=== PATIENT | female | born 1985 | race Caucasian/White ===

== ENCOUNTER 2017-04-27 15:51 | Inpatient (IN) | payer OTHER ==
[~2017-04-27] VITALS: Ht 165.1 cm; Wt 67.7 kg
[2017-04-27] MEDS ORDERED: PRENTAB26 PO (16:29)
[2017-04-27 16:31] VITALS: Ht 165.1 cm; Wt 67.7 kg
[2017-04-27] MEDS ORDERED: LACTATED RINGER'S 1000ML 1,000 ML IV PRN (18:50)
[2017-04-27 19:07] LABS: HEMOGLOBIN 12.4 g/dL (12.0-16.0); MEAN CELL VOLUME 93.8 fL (80-100); MEAN CORPUSCULAR HEMOGLOBIN 33.2 pg (25-34); MEAN CORPUSCULAR HGB CONC 35.4 g/dl (32-36); MEAN PLATELET VOLUME 10.6 fL (7.4-10.4); PLATELET COUNT 233 K/uL (130-400); RED CELL DISTRIBUTION WIDTH SD 44.5 fL (36.4-46.3); WHITE BLOOD COUNT 11.94 K/uL (4.8-10.8)
[2017-04-27] MEDS ORDERED: EpHEDrine SULFATE INJ 50 MG/ML AMP ONE (19:07)
[2017-04-27] MEDS ORDERED: BUPIVACAINE 0.25% 30 ML VIAL ONE (19:07)
[2017-04-27] MEDS ORDERED: FENTANYL CITRATE INJ 50 MCG/1 ML 2 ML VIAL ONE (19:08)
[2017-04-27] MEDS ORDERED: FENTANYL 2MCG/ML ROPIV 1.25MG/ML 100ML BAG EPI ONE (19:08)
[2017-04-27] MEDS ORDERED: NALOXONE HCL INJ 1 MG in SODIUM CHLORIDE 0.9% 1000ML 1,000 ML IV PRN (20:02)
[2017-04-27] MEDS ORDERED: LACTATED RINGER'S 1000ML 500 ML IV PRN (20:02)
[2017-04-27] MEDS: LACTATED RINGER'S 1000ML 1,000 ML IV SCH (20:12)
[2017-04-27] MEDS ORDERED: DiphenhydrAMINE HCL 50 MG/ML VIAL IV PRN (20:15)
[2017-04-27] MEDS ORDERED: NALBUPHINE HCL INJ 10 MG/ML AMP IV PRN (20:15)
[2017-04-27] MEDS ORDERED: NALOXONE HCL INJ 0.4 MG/1 ML VIAL/CARP IV PRN (20:15)
[2017-04-27] MEDS ORDERED: EpHEDrine SULFATE INJ 50 MG/ML AMP IV PRN (20:15)
[2017-04-27] MEDS ORDERED: PROMETHAZINE HCL INJ 6.25 MG in SODIUM CHLORIDE 0.9% 50ML 50 ML IV PRN (20:15)
[2017-04-27] MEDS ORDERED: ONDANSETRON INJ 2 MG/ML 2 ML VIAL IV PRN (20:15)
[2017-04-28] MEDS: FENTANYL 2MCG/ML ROPIV 1.25MG/ML 100ML BAG EPI PRN ×2 (03:08→07:02)
[2017-04-28] MEDS: LACTATED RINGER'S 1000ML 1,000 ML IV SCH (04:09)
[2017-04-28] MEDS ORDERED: OXYTOCIN 30 UNITS/500ML NSS IV ONE (09:30)
[2017-04-28] MEDS ORDERED: LACTATED RINGER'S 1000ML 1,000 ML IV SCH (09:59)
[2017-04-28] MEDS ORDERED: DIPHTHERIA/TETANUS/PERTUSSIS 0.5 ML SYR/VIAL IM. ONE (10:00)
[2017-04-28] MEDS ORDERED: LANOLIN OINT EXT PRN (10:00)
[2017-04-28] MEDS ORDERED: OXYCODONE/ACETAMINOPHEN 5-325 TAB PO PRN (10:00)
[2017-04-28] MEDS ORDERED: BENZOCAINE 20% AER SPR 82.5 GM CAN EXT PRN (10:00)
[2017-04-28] MEDS ORDERED: SUPERCREAM 0.870 % 15GM JAR EXT PRN (10:00)
[2017-04-28] MEDS ORDERED: OXYTOCIN 30 UNITS/500ML NSS IV PRN (10:00)
[2017-04-28] MEDS ORDERED: ACETAMINOPHEN 325 MG TAB PO PRN (10:00)
[2017-04-28] MEDS ORDERED: MEASLES, MUMPS & RUBELLA VIRUS VIAL SQ. ONE (10:00)
[2017-04-28] MEDS ORDERED: HYDROCORTISONE ACETATE 25 MG SUPP PR PRN (10:00)
--- NOTE | 2017-04-28 10:10 | Vaginal Delivery Summary ---
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 MEET with tight nuchal cord x1. Apgars 5/7/9 weight pending. Delayed cord clamping followed by cord blood and spontaneous delivery of placenta. Second degree tear repaired with 3/0 Vicryl suture. Final sponge, needle and instrument count are correct. EBL 300 ml. Mom and baby stable.
--- NOTE | 2017-04-28 10:40 | Anesthesia Procedure Note ---
Anesthesia Epidural Removal Nt Date & Time Apr 28, 2017 at 10:40 Vital Signs Pain Intensity: 2.0 Notes Mental Status: alert / awake / arousable, participated in evaluation Nausea / Vomiting: adequately controlled Pain: adequately controlled Airway Patency, RR, SpO2: stable & adequate BP & HR: stable & adequate Hydration State: stable & adequate Neuraxial Anesthesia: was administered, sensory block is resolving Anesthetic Complications: no major complications apparent, pt satisfied with anesthetic care Epidural: removed without complications, with tip intact
[2017-04-28 12:39] VITALS: BP 122/83; PULSE 97; TEMP 36.6; O2SAT 97
[2017-04-28] MEDS: IBUPROFEN 600 MG TAB PO PRN ×2 (14:37→20:05)
[2017-04-28 16:25] VITALS: BP 118/73; PULSE 88; TEMP 36.4; O2SAT 97
[2017-04-28 19:45] VITALS: BP 131/90; PULSE 71; TEMP 36.4
[2017-04-28] MEDS: DOCUSATE SODIUM 100 MG CAP PO SCH (20:05)
[2017-04-29 00:15] VITALS: BP 121/80; PULSE 77; TEMP 36.6
[2017-04-29] MEDS: IBUPROFEN 600 MG TAB PO PRN ×4 (00:34→18:01)
[2017-04-29 03:30] VITALS: BP 117/69; PULSE 100; TEMP 36.4
[2017-04-29 07:15] LABS: HEMATOCRIT 24.3 % (37-47); HEMOGLOBIN 8.6 g/dL (12.0-16.0)
[2017-04-29 08:00] VITALS: BP 118/77; PULSE 81; TEMP 36.7
[2017-04-29] MEDS ORDERED: FERROUS SULFATE 325 MG TAB PO SCH (08:00)
[2017-04-29] MEDS: FERROUS SULFATE 325 MG TAB PO SCH ×2 (08:45→20:38)
[2017-04-29] MEDS: PRENATAL VITAMIN TAB PO SCH (08:45)
[2017-04-29] MEDS: DOCUSATE SODIUM 100 MG CAP PO SCH ×2 (08:46→20:38)
--- NOTE | 2017-04-29 08:50 | OB/GYN Progress Note ---
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 Patient is seen and examined. She feels well, no complaints. Ambulating without dizziness Voiding without difficulty Tolerating regular diet with out N&V Bleeding is minimal No fever/ chills/ CP/ SOB/ N&V/ Leg pain Breast feeding without problems Date Time Temp Pulse Resp B/P (MAP) Pulse Ox O2 Delivery O2 Flow Rate FiO2 04/29/17 08:00 36.7 81 18 118/77 (91) Room Air 04/29/17 03:30 36.4 100 18 117/69 (85) Room Air 04/29/17 00:15 Room Air 04/29/17 00:15 36.6 77 18 121/80 (94) Room Air 04/28/17 19:45 36.4 71 18 131/90 (104) Room Air 04/28/17 16:25 36.4 88 16 118/73 (88) 97 Room Air 04/28/17 16:25 97 Room Air 04/28/17 12:39 36.6 97 20 122/83 (96) 97 Room Air 04/28/17 12:39 97 Room Air Last 24 Hours Test 04/29/17 06:07 Hemoglobin 8.6 g/dL Hematocrit 24.3 % PE: General: Alert, orientedx3, NAD Abd: soft, NT, fundus firm, below Umbilicus Perineum intact, Lochia rubra minimal Ext; NT, no edema AP: 31 yo s/p , ppd# 1 VSS Afebrile doing well Anemic, asymptomatic, start iron bid, repeat H&H at noon Continue routine care All questions were answered D/C home tomorrow
[2017-04-29 12:56] LABS: HEMATOCRIT 27.3 % (37-47); HEMOGLOBIN 9.6 g/dL (12.0-16.0)
[2017-04-29 15:30] VITALS: BP 120/81; PULSE 87; TEMP 36.5
[2017-04-29] MEDS ORDERED: BISACODYL 5 MG TABEC PO SCH (20:00)
[2017-04-30 00:10] VITALS: BP 124/81; PULSE 70; TEMP 36.7
[2017-04-30] MEDS: IBUPROFEN 600 MG TAB PO PRN (01:14)
[2017-04-30] MEDS ORDERED: BISACODYL 10 MG SUPP PR PRN (07:00)
[2017-04-30] MEDS ORDERED: MTR600X PO (07:19)
--- NOTE | 2017-04-30 07:20 | Discharge Instructions ---
Discharge Instructions Date of Service Apr 30, 2017. Admission Reason for Admission: Check Labor Discharge Discharge Diagnosis / Problem: Vaginal Delivery Discharge Goals Goal(s): Routine recovery after delivery Medications Continue Dispensed Medications: supercream, dermaplast, tucks, lansinoh Activity Recommendations Activity Limitations: per Instructions/Follow-up section . Instructions / Follow-Up Instructions / Follow-Up ACTIVITY RECOMMENDATIONS: * Gradual return to full activity over the next 2-3 weeks. * No lifting - nothing heavier than baby over the next 2-3 weeks. * Do not engage in vigorous exercise, sexual activity or sports until cleared by your physician. * Do not drive or operate any motorized equipment until cleared by your physician. * You may shower/bathe daily. BREAST CARE: If you are not breast feeding: * Wear a supportive bra 24 hours a day for one to two weeks. * Avoid stimulating your breasts and nipples as much as possible during the first few weeks after delivery. * When taking a shower, have the warm water hit your back, not breasts. * When your breasts feel full, apply ice packs. Usually three to four times a day helps ease the discomfort. * Take a mild pain medication (Tylenol/Motrin) when you are uncomfortable. If breast feeding: * Use breast milk to lubricate nipples. Lansinoh cream may be used for sore nipples. You do not need to remove cream prior to breast feeding. If using a different brand of cream, check the label for directions regarding removal of cream prior to nursing. * Wear a supportive bra. * If having problems with breasts or breast feeding, call a internal consultant or your health care provider. EPISIOTOMY CARE: After delivery, if you have an episiotomy (stitches), the following steps will ease discomfort and aid healing. * For the first 24 hours after delivery, place ice packs next to your episiotomy to help reduce swelling. * After the first 24 hour-period, sitz baths, either portable or in the tub, are suggested. A shower with a shower arm sprayed over the episiotomy may be comforting. * [place] care should be done after each voiding and bowel movement. Squirt warm water from a plastic bottle over the perineum (region of the body between the anus and urinary opening) and pat dry. * Use Dermoplast to ease discomfort. Shake container. [place] directly over the episiotomy. * Place a Tucks on a clean sanitary pad next to your episiotomy. OVER THE COUNTER MEDICATION: * For discomfort or pain, you may use Acetaminophen (Tylenol), Ibuprofen (Advil ), or Naproxen (Aleve) following the package directions. * For constipation you may use Colace following the package directions. SPECIAL CARE INSTRUCTIONS: When you are discharged from the hospital, it is important for you to follow the instructions listed below: * During the first week at home, you should be able to care for yourself and your baby. In addition, the usual light household activities are encouraged. * Limit your activities to the way you feel. Do not try to clean the house or move furniture. Be sensible. * If you actively engage in sports and have done so up until the time of your delivery, you may resume these activities as soon as you feel able. This may take up to one month or even longer. Use good judgment. * Continue to take your vitamins for at least six weeks after the of your baby. * Your diet need not be limited unless you were on a special diet before your delivery. Breast-feeding mothers need around 2500 calories per day and at least 64-80 ounces of fluid per day (8 to 10 glasses). * You should eat foods from the four major food groups. Crash diets or fad diets are to be avoided. Eating lean meats, fresh fruits and vegetables, low-fat dairy products, high fiber foods and a regular exercise program, will help you get back to your pre- weight without putting your health at risk. * Constipation is sometimes a problem after delivery. Take a mild laxative as needed. If breast feeding, Milk of Magnesia is acceptable to use. You may use a suppository or Fleets enema if no episiotomy. * A daily shower or tub bath is suggested. Be sure to thoroughly and gently dry the perineum. * A bloody vaginal discharge will usually continue until around four weeks post . A small amount of bleeding may continue for as long as six weeks. Vaginal discharge changes from the bright red bleeding after delivery to pink then brownish and finally yellowish-pink before becoming white and disappearing. * Bleeding may increase with activity. Your first period may come in 4-8 weeks. If you are breast feeding, your period may be delayed even longer. * [place] (sex) can begin whenever both you and your partner feel comfortable and do not have any form of genital infection. It is recommended that you wait until after your return appointment and discuss with your physician. If you have questions, please talk to your health care practitioner. A condom should be used to prevent infection and . * Foreplay, gentle intercourse and lubrication is very important the first several times to prevent pain. A water-based lubricant such as K-Y jelly or Astroglide may be used. * Tampons may be used six weeks after delivery. * Douching should be avoided for 6 weeks after delivery. * If you have RH negative blood and your baby is RH positive, you will receive RHOGAM by injection prior to discharge. The nurse will give you a card to keep with you that has the date and place that you received RHOGAM after delivery. * During your care, you had a Rubella screen done to check for the presence of rubella antibodies in your blood. If your test was negative, you will receive a Rubella vaccine prior to discharge. This vaccine may cause a fever, soreness at the injection site and flu-like symptoms. If these symptoms persist, notify your health care practitioner. is not advised for three months after a Rubella vaccine. There is a higher chance of having a baby with defects if conceived within three months of getting the vaccine. * If you were discharged 24 hours from delivery or before 48 hours: Visiting nurses will come to your home 48 hours after discharge to assess you and your baby. The visiting nurse will meet with you while you are in the hospital to arrange a time and get directions to your home. * Verbalizes understanding of car seat law as reviewed with patient nursing. * Car Seat hand-out given and reviewed with patient by nursing. * Shaken baby information reviewed with patient by nursing. Call you doctor if: * Heavy bleeding (saturating several pads an hour) or passing clots the size of your fist. * A fever >101 degrees F (38.3 degrees C) on two occasions four hours apart and/or chills. * Unusual pain in the pelvic or vaginal areas. * "Baby Blues" lasting longer than two weeks. If you have any questions or concerns, call your health care practitioner at . FOLLOW-UP VISIT: * Please call the office at to schedule a 6 week examination. It is important you keep this appointment. * It is important for you to make arrangements for either yearly or twice yearly check-ups thereafter. Current Hospital Diet Patient's current hospital diet: Regular OB Diet Discharge Diet Recommended Diet: Regular OB Diet Pending Studies Studies pending at discharge: no Medical Emergencies . Who to Call and When: Medical Emergencies: If at any time you feel your situation is an emergency, please call 911 immediately. . Non-Emergent Contact Non-Emergency issues call your: Primary Care Provider, Disability Liaison Officer . . "Provider Documentation" section prepared by Loy Jo. . VTE Core Measure Inpt VTE Proph given/why not?: Treatment not indicated
--- NOTE | 2017-04-30 07:22 | OB/GYN Progress Note ---
ORDER ENTRY ADMINISTRATOR Progress Note Date of Service Apr 30, 2017. Subjective conversation w/ patient Ambulation: ambulating normally Voiding: no voiding problems Passing Gas: Yes Diet Tolerance: Regular Diet Lochia: Moderate Feeding Type: Breast Feeding Pain: 3-4/10 Notes: Doing well, pain well controlled. Tolerating regular diet. Ambulating without difficulty. Lochia decreasing. Would like to go home today. Review of Systems Constitutional: No fever, No chills, No sweats, No weight loss, No weakness, No fatigue, No problem reported Respiratory: No cough, No sputum, No wheezing, No shortness of breath, No dyspnea on exertion, No dyspnea at rest, No hemoptysis, No problem reported Cardiac: No chest pain, No orthopnea, No PND, No edema, No claudication, No palpitations, No problem reported Abdomen: No pain, No nausea, No vomiting, No diarrhea, No constipation, No GI bleeding, No problem reported Female : No see HPI, No dysuria, No urinary frequency, No hematuria, No incontinence, No abnormal vaginal bleeding, No vaginal discharge, No problem reported Objective Vital Signs Date Time Temp Pulse Resp B/P (MAP) Pulse Ox O2 Delivery O2 Flow Rate FiO2 04/30/17 00:10 Room Air 04/30/17 00:10 36.7 70 18 124/81 (95) Room Air 04/29/17 15:30 36.5 87 20 120/81 (94) Room Air 04/29/17 15:30 Room Air 04/29/17 08:00 36.7 81 18 118/77 (91) Room Air 04/29/17 07:30 Room Air Laboratory Results Last 24 Hours Test 04/29/17 12:27 Hemoglobin 9.6 g/dL Hematocrit 27.3 % Assessment and Plan Post- Day Number: 2 Continue Routine Care: -D/C home today -F/U in 6 weeks.
[2017-04-30] MEDS: DOCUSATE SODIUM 100 MG CAP PO SCH (08:19)
[2017-04-30] MEDS: FERROUS SULFATE 325 MG TAB PO SCH (08:19)
[2017-04-30] MEDS: PRENATAL VITAMIN TAB PO SCH (08:20)
[2017-04-30 08:38] VITALS: BP 125/81; PULSE 75; TEMP 36.6; O2SAT 99
[2017-04-30 13:00] VITALS: BP_DIAS 81; PULSE 75; TEMP 36.6
== END 2017-04-30 14:14 | disposition home or self-care (01) | DRG 775 ==
LOC: C.LD 15:51 → C.OPB 15:51 → C.LD 18:51 → C.OPB 18:51 → C.OBG 04-28 12:34
PROVIDERS: ADMIT Obstetrics & Gynecology; ATTEND Obstetrics & Gynecology
PROC: 0KQM0ZZ Repair Perineum Muscle, Open Approach (ICD-10-PCS; principal; 2017-04-28)
PROC: 10E0XZZ Delivery of Products of Conception, External Approach (ICD-10-PCS; principal; 2017-04-28)
DX: O77.0 Labor and delivery complicated by meconium in amniotic fluid (principal); O70.1 Second degree perineal laceration during delivery; O69.1XX0 Labor and delivery complicated by cord around neck, with compression, not applicable or unspecified; O26.893 Other specified pregnancy related conditions, third trimester; N89.6 Tight hymenal ring; O90.81 Anemia of the puerperium; Z3A.40 40 weeks gestation of pregnancy; Z37.0 Single live birth

== ENCOUNTER 2019-12-08 15:12 | Inpatient (IN) ==
[2019-12-08] MEDS ORDERED: OXYTOCIN 30 UNITS/500 ML BAG IV PRN ×2 (17:20→17:55)
--- NOTE | 2019-12-08 17:29 | History & Physical Report ---
Date of Service December 08, 2019 Assessment & Plan (1) Spontaneous rupture of amniotic membranes: 34 yo at 38.1 wks with SROM, not in labor VSS Afebrile FHR reassuring GBS negative Plan to admit Discussed IOL with Oxytocin , decrease risk of intraa-amniotic infection She agreed with IOL All questions were answered History of Present Illness Primary Care Provider: NO PCP Patient is a 34 yo at 38.1 wks, she felt small LOF yesterday afternoon and then stopped and then felt more this morning around 10 am. Clear She was in office and had speculum exam and Nitrazine was + and recommended to come to L&D Her AmniSure was + here at L&D No VB +FM No fever/ chills/ N&V/ Abd pain No ctxs,but feels mild irregular tightening, not painful Her has been uncomplicated GBS negative Allergies Allergy/AdvReac Type Severity Reaction Status Date / Time No Known Allergies Allergy Unverified 04/27/17 16:30 Home Medications Home Medications Medication Instructions Recorded Confirmed Type Multivit/Min/Iron/Fol Ac/Pren 1 tab PO DAILY #0 tab 04/27/17 12/08/19 History ( Vitamin) loratadine [Claritin] 10 mg PO DAILY PRN 12/08/19 12/08/19 History Patient History Medical History Asthma Social History Smoking Status: Never smoker Second Hand Exposure: No; Hx Alcohol Use: No Hx Substance Use: No Preferred Language: Khmer Communication Ability: Effective 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 Required: No Beliefs That Will Affect Care: None marital status: Current Living Situation: Spouse Feels Safe at Home: Yes Safety Concerns: Feels Safe At This Time 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, 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 No h/o STD's Review of Systems All systems reviewed & are unremarkable except as noted in HPI & below Physical Exam Constitutional: WD/WN, vitals as above well developed and well nourished Comfortable, NAD Gastrointestinal (Abdomen): normal bowel sounds, soft, nontender, no hepatosplenomegaly (SOFT, NT, Gravid) Genitourinary: normal external appearance OB Exam Abdomen: + vertex Manual OB Exam: + cervical dilation 2 cm, + cervical effacement 30% and + station high OB Exam Monitor Tracing: + external uterine monitor used and + category I Results & Data ([facility]) Vital Signs (Past 12 Hours) Vital Signs Temp Pulse Resp BP 12/08/19 15:27 106 H 121/78 12/08/19 15:26 37 C 18
[2019-12-08 17:42] LABS: Hematocrit (blood only) 34.4 % (37-47); Hemoglobin 11.9 g/dL (12.0-16.0); Mean Corpuscular Hemoglobin 32.2 pg (25-34); Mean Corpuscular Volume 93.2 fL (80-100); Mean Platelet Volume 10.2 fL (7.4-10.4); Platelet Count 208 K/uL (130-400); RDW Coefficient of Variation 12.9 % (11.5-14.5); RDW Standard Deviation 43.6 fL (36.4-46.3); Red Blood Count 3.69 M/uL (4.2-5.4); White Blood Count 9.64 K/uL (4.8-10.8)
[2019-12-08 17:48] LABS: Mean Corpuscular Hgb Conc 34.6 g/dL (32-36)
[2019-12-08] MEDS: LACTATED RINGER'S 1,000 ML IV PRN ×2 (17:50→21:06)
[2019-12-08] MEDS ORDERED: ePHEDrine sulfate 50 MG/ML AMP ONE (20:40)
[2019-12-08] MEDS ORDERED: BUPIVACAINE 0.25% 30 ML VIAL ONE (20:40)
[2019-12-08] MEDS ORDERED: fentaNYL citrate 100 MCG/2 ML VIAL ONE (20:41)
[2019-12-08] MEDS ORDERED: fentaNYL 2MCG/ML ROPIV 1.25MG/ML 100 ML BAG EPI ONE (20:42)
--- NOTE | 2019-12-08 21:57 | Anesthesiology Consultation ---
Date of Service December 08, 2019 Assessment & Plan (1) Encounter for pre-operative examination: Chart Review Chart Review: Acceptable Risk for Labor Epidural Consults Requested none ASA ASA2 Proposed Anesthesia Anesthesia Type: Labor Epidural Risk / Benefits Reviewed With: PT / POA / Parent / Guardian, Accepts Plan and Informed Consent Obtained History Height/Weight Height: 5 ft 5 in Weight: 62.142 kg Allergies Allergy/AdvReac Type Severity Reaction Status Date / Time No Known Allergies Allergy Unverified 04/27/17 16:30 Medications Home Medications Medication Instructions Recorded Confirmed Last Taken Multivit/Min/Iron/Fol Ac/Pren 1 tab PO DAILY #0 tab 04/27/17 12/08/19 12/08/19 07:30 ( Vitamin) loratadine [Claritin] 10 mg PO DAILY PRN 12/08/19 12/08/19 1 Day Ago ~12/07/19 Active Medications Generic Name Dose Route Start Last Admin Trade Name Freq PRN Reason Stop Dose Admin Lactated Ringer's 1,000 mls @ 150 mls/hr 12/08/19 17:20 12/08/19 21:06 Lr IV 12/10/19 17:19 150 mls/hr .[id number] PRN Administration L&D Protocol Protocol Oxytocin 30 units in 500 mls @ 10 mls/hr 12/08/19 17:55 12/08/19 20:15 Pitocin IV 12/10/19 17:54 0.6 units/hr .Q24H PRN 10 mls/hr Labor Induction/Augmentation Titration Protocol 0.6 UNITS/HR Past Medical History Medical History Asthma Exercise / Class Metabolic Activity II 4-5 Yardwork/Stairs/Walk up hill Past Anesthesia History No Hx of Anesthesia Complications and No Family Hx of Anesthesia Complications History of PONV No Hx of PONV and No Hx of Motion Sickness Social History Smoking Status: Never smoker Hx Alcohol Use: No Hx Substance Use: No Physical Exam Vital Signs Last Vital Signs Temp 97.7 F 12/08/19 21:07 Pulse 83 12/08/19 21:52 Resp 18 12/08/19 21:07 BP 135/89 12/08/19 21:07 Pulse Ox 97 12/08/19 21:52 ENMT Mouth: no dentition abnormality Thyromental Distance: > or= 3.5 Finger Breadths Mallampati Class: II Neck normal visual inspection Respiratory normal respiratory effort Auscultation: lungs clear to auscultation bilaterally Cardiovascular Rate/Rhythm: regular rate and regular rhythm Testing Laboratory Results 12/08/19 17:33
[2019-12-08] MEDS ORDERED: NALOXONE HCL 0.4 MG/1 ML VIAL/CARP IV PRN (22:08)
[2019-12-08] MEDS ORDERED: ONDANSETRON INJ 2 MG/ML 2 ML VIAL IV PRN (22:08)
[2019-12-08] MEDS ORDERED: fentaNYL 2MCG/ML ROPIV 1.25MG/ML 100 ML BAG EPI PRN (22:08)
[2019-12-08] MEDS ORDERED: DiphenhydrAMINE HCL 50 MG/ML VIAL IV PRN (22:08)
[2019-12-08] MEDS ORDERED: ePHEDrine sulfate 50 MG/ML AMP IV PRN (22:08)
[2019-12-08] MEDS ORDERED: NALOXONE HCL 1 MG in SODIUM CHLORIDE 0.9% 1000ML 1,000 ML IV PRN (22:08)
--- NOTE | 2019-12-08 22:37 | Obstetrical Progress Note ---
Date of Service December 08, 2019 Assessment & Plan Admission and Anticipated Discharge Date Admission Date: December 08, 2019 Subjective Patient is reevaluated. She has just received epidural for pain and getting more comfortable. heart rate at 120s to 30s with moderate variability, she had decelerations with each contraction for the last 3 contractions which were every 1 to 2 minutes. Vaginal exam, cervix is 5 cm dilated 70% effaced -3, soft and stretchable, abundant clear fluid leakage was noted. Patient is on her left lateral side, Pitocin was stopped, IV fluid bolus was started and nasal oxygen was applied. heart rate at 130s with good variability, we will continue to monitor closely. Results & Data ([facility]) Vital Signs (Past 12 Hours) Vital Signs Temp Pulse Resp BP Pulse Ox 12/08/19 22:32 81 100 12/08/19 22:31 100 H 91 12/08/19 22:27 78 97 12/08/19 22:26 86 91 12/08/19 22:23 95 H 113/72 12/08/19 22:22 94 H 97 12/08/19 22:21 85 94 12/08/19 22:18 82 18 111/73 12/08/19 22:17 90 97 12/08/19 22:16 84 120/86 92 12/08/19 22:15 18 12/08/19 22:14 83 114/79 12/08/19 22:12 96 H 112/75 94 12/08/19 22:10 82 124/80 94 12/08/19 22:08 71 20 125/75 12/08/19 22:07 89 88 L 12/08/19 22:06 82 129/74 12/08/19 22:05 89 92 12/08/19 22:02 88 96 12/08/19 22:00 85 93 12/08/19 21:57 97 H 74 L 12/08/19 21:52 83 97 12/08/19 21:51 91 H 94 12/08/19 21:47 85 98 12/08/19 21:42 75 97 12/08/19 21:37 75 98 12/08/19 21:33 79 91 12/08/19 21:32 78 100 12/08/19 21:27 82 97 12/08/19 21:23 78 88 L 12/08/19 21:22 80 95 12/08/19 21:17 75 98 12/08/19 21:12 74 97 12/08/19 21:07 36.5 C 73 18 135/89 96 12/08/19 21:03 81 94 12/08/19 21:02 82 98 12/08/19 20:57 82 96 12/08/19 20:52 73 99 12/08/19 20:03 83 16 131/71 12/08/19 19:03 36.8 C 18 12/08/19 18:57 76 121/76 12/08/19 15:27 106 H 121/78 12/08/19 15:26 37 C 18
[2019-12-09] MEDS ORDERED: MEASLES, MUMPS & RUBELLA VIRUS VIAL SQ ONE (00:32)
[2019-12-09] MEDS ORDERED: ACETAMINOPHEN 325 MG TAB PO PRN (00:32)
[2019-12-09] MEDS ORDERED: SUPERCREAM 0.870% 15 GM JAR EXT PRN (00:32)
[2019-12-09] MEDS ORDERED: DIPHTHERIA/TETANUS/PERTUSSIS 0.5 ML SYR/VIAL IM ONE (00:32)
[2019-12-09] MEDS ORDERED: BENZOCAINE 20% AER SPR 82.5 GM CAN EXT PRN (00:32)
[2019-12-09] MEDS ORDERED: OXYCODONE/ACETAMINOPHEN 5mg/325mg TAB PO PRN (00:32)
[2019-12-09] MEDS ORDERED: OXYTOCIN 30 UNITS/500 ML BAG IV PRN (00:32)
[2019-12-09] MEDS ORDERED: bisacodyL 10 MG SUPP PR PRN (00:32)
[2019-12-09] MEDS ORDERED: HYDROCORTISONE ACETATE 25 MG SUPP PR PRN (00:32)
--- NOTE | 2019-12-09 00:33 | Anesthesiology Progress Note ---
Date of Service December 09, 2019 Anesthesia Post Procedure Vital Signs Vital Signs: Temp Pulse Resp BP Pulse Ox 12/09/19 00:22 101 H 123/84 95 12/09/19 00:17 90 98 12/09/19 00:13 89 93 12/09/19 00:12 83 96 12/09/19 00:07 102 H 97 12/09/19 00:04 98 H 94 12/09/19 00:02 91 H 97 12/08/19 23:57 87 99 12/08/19 23:52 122 H 99 12/08/19 23:47 128 H 100 12/08/19 23:42 104 H 100 12/08/19 23:41 99 H 93 12/08/19 23:37 97 H 98 12/08/19 23:35 105 H 120/75 92 12/08/19 23:32 97 H 100 12/08/19 23:27 96 H 96 12/08/19 23:26 88 92 12/08/19 23:22 74 99 12/08/19 23:20 74 111/68 12/08/19 23:17 83 100 12/08/19 23:12 83 98 12/08/19 23:07 83 97 12/08/19 23:06 85 105/60 12/08/19 23:02 36.4 C L 87 18 99 12/08/19 22:57 83 100 12/08/19 22:52 81 100 12/08/19 22:49 83 18 107/65 12/08/19 22:47 87 100 12/08/19 22:42 80 100 12/08/19 22:37 98 H 92 12/08/19 22:34 79 101/63 12/08/19 22:32 81 100 12/08/19 22:31 100 H 91 12/08/19 22:30 20 12/08/19 22:27 78 97 12/08/19 22:26 86 91 12/08/19 22:23 95 H 113/72 12/08/19 22:22 94 H 97 12/08/19 22:21 85 94 12/08/19 22:20 20 12/08/19 22:18 82 18 111/73 12/08/19 22:17 90 97 12/08/19 22:16 84 120/86 92 12/08/19 22:15 18 12/08/19 22:14 83 114/79 12/08/19 22:12 96 H 112/75 94 12/08/19 22:10 82 124/80 94 12/08/19 22:08 71 20 125/75 12/08/19 22:07 89 88 L 12/08/19 22:06 82 129/74 12/08/19 22:05 89 92 12/08/19 22:02 88 96 12/08/19 22:00 85 93 12/08/19 21:57 97 H 74 L 12/08/19 21:52 83 97 12/08/19 21:51 91 H 94 12/08/19 21:47 85 98 12/08/19 21:42 75 97 12/08/19 21:37 75 98 12/08/19 21:33 79 91 12/08/19 21:32 78 100 12/08/19 21:27 82 97 12/08/19 21:23 78 88 L 12/08/19 21:22 80 95 12/08/19 21:17 75 98 12/08/19 21:12 74 97 12/08/19 21:07 36.5 C 73 18 135/89 96 12/08/19 21:03 81 94 12/08/19 21:02 82 98 12/08/19 20:57 82 96 12/08/19 20:52 73 99 12/08/19 20:03 83 16 131/71 12/08/19 19:03 36.8 C 18 12/08/19 18:57 76 121/76 12/08/19 15:27 106 H 121/78 12/08/19 15:26 37 C 18 Pain Intensity Lower Abdomen: Pain Intensity: 5 Transfer of Care Handoff Completed per policy Notes Mental Status: alert / awake / arousable and participated in evaluation Patient Amnestic to Procedure: Yes Nausea / Vomiting: adequately controlled Pain: adequately controlled Airway Patency, RR, SpO2: stable & adequate BP & HR: stable & adequate Hydration State: stable & adequate Anesthetic Complications: no major complications apparent and Pt Satisfied with anesthetic care
[2019-12-09] MEDS: IBUPROFEN 600 MG TAB PO PRN ×3 (02:58→21:19)
--- NOTE | 2019-12-09 05:01 | Delivery Summary ---
DATE OF OPERATION: 12/08/2019 TIME OF DELIVERY: 23:51 p.m. DETAILS OF DELIVERY: The patient was found to be fully dilated and desired to push. She pushed through 3 contractions and there was a tight band of scar tissue in the posterior fourchette, which was from prior delivery and repair. It was holding the head and heart rate was having deceleration. After a small incision was made on the scar tissue in the posterior fourchette and the head was delivered without difficulty. There was a nuchal cord around the neck x1 which was reduced. Shoulders were delivered with minimal traction. Baby was handed to the mother where mouth and nose were suctioned. Cord was clamped x2 and cut. Cord blood was obtained and then the vagina and perineum were checked for lacerations. There was a second-degree perineal laceration. It was confirmed with rectal exam. Excellent sphincter tone was noted. The perineal body muscles around the sphincter were held with Allis clamps and those were repaired with 0 Vicryl with U-type sutures x2 to support the sphincter and gloves were changed and the vaginal mucosa was repaired with 2-0 Vicryl in a running locked fashion and the skin in a subcuticular fashion. There was a small vaginal laceration on the right lower vaginal wall, which was also repaired with 2-0 Vicryl in a running fashion. Excellent hemostasis was achieved. Rectal exam was repeated. No sutures were felt and excellent sphincter tone was noted. Then the placenta was found to be in the vagina, delivered spontaneous as intact and complete. Uterus was explored, found to be empty. Lower segment was cleared of all clots and debris. EBL was 200. Mom and baby tolerated the procedure well. Sponge, lap, needle count was correct x2. Baby was a viable female , Apgars 8/9. No complications happened and I was present during whole procedure. I attest to the content of the Intraoperative Record and any orders documented therein. Any exceptions are noted below. MTDD
[2019-12-09] MEDS: PRENATAL VITAMIN 1 TAB PO SCH (07:36)
[2019-12-09] MEDS: DOCUSATE SODIUM 100 MG CAP PO SCH ×2 (07:36→20:58)
[2019-12-09] MEDS: FERROUS SULFATE 325 MG TAB PO SCH (07:36)
--- NOTE | 2019-12-09 08:17 | Obstetrical Progress Note ---
Date of Service December 09, 2019 Assessment & Plan (1) Normal course: PPD #1 pt doing well anticipate disc tomorrow Subjective Ambulation: ambulating normally Voiding: no voiding problems Passing Gas:: Yes Diet Tolerance:: regular diet Lochia:: Small Feeding Type:: breast feeding Review of Systems All systems reviewed & are unremarkable except as noted in HPI & below Physical Exam Constitutional WD/WN, vitals as above well developed and well nourished Eyes PERRL, conjunctivae normal, anicteric sclerae Neck trachea midline, no thyromegaly Respiratory normal respiratory effort, lungs clear to auscultation Auscultation: no crackles, no rales and no wheezes Cardiovascular RRR, no murmur, no edema Gastrointestinal (Abdomen) normal bowel sounds, soft, nontender, no hepatosplenomegaly Uterus is below umbilicus Musculoskeletal no cyanosis or clubbing, extremities motor strength 5/5 Skin no rashes, warm and dry Neurologic patellar DTR's 2+ bilat, sensation intact Psychiatric A+Ox3, euthymic affect Genitourinary normal external appearance Results & Data ([facility]) Vital Signs (Past 12 Hours) Vital Signs Temp Pulse Pulse Resp BP BP Pulse Ox 12/09/19 08:00 36.5 C 72 18 115/77 99 12/09/19 03:00 36.5 C 87 20 117/73 98 12/09/19 02:36 36.5 C 101 H 18 125/83 12/09/19 02:21 96 H 111/67 12/09/19 02:06 87 112/70 12/09/19 01:51 93 H 16 108/65 12/09/19 01:37 127 H 121/59 L 12/09/19 01:21 88 18 129/69 12/09/19 01:06 91 H 16 127/79 12/09/19 00:51 86 16 125/75 12/09/19 00:36 99 H 18 113/65 12/09/19 00:22 36.7 C 101 H 16 123/84 95 12/09/19 00:17 90 98 12/09/19 00:13 89 93 12/09/19 00:12 83 96 12/09/19 00:07 102 H 97 12/09/19 00:04 98 H 94 12/09/19 00:02 91 H 97 12/08/19 23:57 87 99 12/08/19 23:52 122 H 99 12/08/19 23:47 128 H 100 12/08/19 23:42 104 H 100 12/08/19 23:41 99 H 93 12/08/19 23:37 97 H 98 12/08/19 23:35 105 H 120/75 92 12/08/19 23:32 97 H 100 12/08/19 23:27 96 H 96 12/08/19 23:26 88 92 12/08/19 23:22 74 99 12/08/19 23:20 74 111/68 12/08/19 23:17 83 100 12/08/19 23:12 83 98 12/08/19 23:07 83 97 12/08/19 23:06 85 105/60 12/08/19 23:02 36.4 C L 87 18 99 12/08/19 22:57 83 100 12/08/19 22:52 81 100 12/08/19 22:49 83 18 107/65 12/08/19 22:47 87 100 12/08/19 22:42 80 100 12/08/19 22:37 98 H 92 12/08/19 22:34 79 101/63 12/08/19 22:32 81 100 12/08/19 22:31 100 H 91 12/08/19 22:30 20 12/08/19 22:27 78 97 12/08/19 22:26 86 91 12/08/19 22:23 95 H 113/72 12/08/19 22:22 94 H 97 12/08/19 22:21 85 94 12/08/19 22:20 20 12/08/19 22:18 82 18 111/73 12/08/19 22:17 90 97 12/08/19 22:16 84 120/86 92 12/08/19 22:15 18 12/08/19 22:14 83 114/79 12/08/19 22:12 96 H 112/75 94 12/08/19 22:10 82 124/80 94 12/08/19 22:08 71 20 125/75 12/08/19 22:07 89 88 L 12/08/19 22:06 82 129/74 12/08/19 22:05 89 92 12/08/19 22:02 88 96 12/08/19 22:00 85 93 12/08/19 21:57 97 H 74 L 12/08/19 21:52 83 97 12/08/19 21:51 91 H 94 12/08/19 21:47 85 98 12/08/19 21:42 75 97 12/08/19 21:37 75 98 12/08/19 21:33 79 91 12/08/19 21:32 78 100 12/08/19 21:27 82 97 12/08/19 21:23 78 88 L 12/08/19 21:22 80 95 12/08/19 21:17 75 98 12/08/19 21:12 74 97 12/08/19 21:07 36.5 C 73 18 135/89 96 12/08/19 21:03 81 94 12/08/19 21:02 82 98 12/08/19 20:57 82 96 12/08/19 20:52 73 99
--- NOTE | 2019-12-09 08:20 | Obstetrical Progress Note ---
Date of Service December 09, 2019 Assessment & Plan (1) Normal course: PPD #1 Pt doing well Anticipate disch tomorrow Results & Data ([facility]) Vital Signs (Past 12 Hours) Vital Signs Temp Pulse Pulse Resp BP BP Pulse Ox 12/09/19 08:00 36.5 C 72 18 115/77 99 12/09/19 03:00 36.5 C 87 20 117/73 98 12/09/19 02:36 36.5 C 101 H 18 125/83 12/09/19 02:21 96 H 111/67 12/09/19 02:06 87 112/70 12/09/19 01:51 93 H 16 108/65 12/09/19 01:37 127 H 121/59 L 12/09/19 01:21 88 18 129/69 12/09/19 01:06 91 H 16 127/79 12/09/19 00:51 86 16 125/75 12/09/19 00:36 99 H 18 113/65 12/09/19 00:22 36.7 C 101 H 16 123/84 95 12/09/19 00:17 90 98 12/09/19 00:13 89 93 12/09/19 00:12 83 96 12/09/19 00:07 102 H 97 12/09/19 00:04 98 H 94 12/09/19 00:02 91 H 97 12/08/19 23:57 87 99 12/08/19 23:52 122 H 99 12/08/19 23:47 128 H 100 12/08/19 23:42 104 H 100 12/08/19 23:41 99 H 93 12/08/19 23:37 97 H 98 12/08/19 23:35 105 H 120/75 92 12/08/19 23:32 97 H 100 12/08/19 23:27 96 H 96 12/08/19 23:26 88 92 12/08/19 23:22 74 99 12/08/19 23:20 74 111/68 12/08/19 23:17 83 100 12/08/19 23:12 83 98 12/08/19 23:07 83 97 12/08/19 23:06 85 105/60 12/08/19 23:02 36.4 C L 87 18 99 12/08/19 22:57 83 100 12/08/19 22:52 81 100 12/08/19 22:49 83 18 107/65 12/08/19 22:47 87 100 12/08/19 22:42 80 100 12/08/19 22:37 98 H 92 12/08/19 22:34 79 101/63 20 22:32 81 100 12/08/19 22:31 100 H 91 12/08/19 22:30 20 12/08/19 22:27 78 97 12/08/19 22:26 86 91 12/08/19 22:23 95 H 113/72 12/08/19 22:22 94 H 97 12/08/19 22:21 85 94 12/08/19 22:20 20 12/08/19 22:18 82 18 111/73 12/08/19 22:17 90 97 12/08/19 22:16 84 120/86 92 12/08/19 22:15 18 12/08/19 22:14 83 114/79 12/08/19 22:12 96 H 112/75 94 12/08/19 22:10 82 124/80 94 12/08/19 22:08 71 20 125/75 12/08/19 22:07 89 88 L 12/08/19 22:06 82 129/74 12/08/19 22:05 89 92 12/08/19 22:02 88 96 12/08/19 22:00 85 93 12/08/19 21:57 97 H 74 L 12/08/19 21:52 83 97 12/08/19 21:51 91 H 94 12/08/19 21:47 85 98 12/08/19 21:42 75 97 20 21:37 75 98 20 21:33 79 91 20 21:32 78 100 20 21:27 82 97 20 21:23 78 88 L 12/08/19 21:22 80 95 12/08/19 21:17 75 98 20 21:12 74 97 20 21:07 36.5 C 73 18 135/89 96 1920 21:03 81 94 20 21:02 82 98 20 20:57 82 96 12/08/19 20:52 73 99
--- NOTE | 2019-12-10 06:39 | Obstetrical Progress Note ---
Date of Service December 10, 2019 Assessment & Plan (1) Normal course: PPD #2 pt doing well antiicpate dsic PM Subjective Ambulation: ambulating normally Voiding: no voiding problems Passing Gas:: Yes Diet Tolerance:: regular diet Lochia:: Small Feeding Type:: breast feeding Review of Systems All systems reviewed & are unremarkable except as noted in HPI & below Physical Exam Constitutional WD/WN, vitals as above well developed and well nourished Eyes PERRL, conjunctivae normal, anicteric sclerae Neck trachea midline, no thyromegaly Respiratory normal respiratory effort, lungs clear to auscultation Auscultation: no crackles, no rales and no wheezes Cardiovascular RRR, no murmur, no edema Gastrointestinal (Abdomen) normal bowel sounds, soft, nontender, no hepatosplenomegaly Uterus is below umbilicus Musculoskeletal no cyanosis or clubbing, extremities motor strength 5/5 Skin no rashes, warm and dry Neurologic patellar DTR's 2+ bilat, sensation intact Psychiatric A+Ox3, euthymic affect Genitourinary normal external appearance Results & Data ([facility]) Vital Signs (Past 12 Hours) Vital Signs Temp Pulse Resp BP Pulse Ox 12/10/19 00:20 36.8 C 87 17 105/71 97 12/09/19 20:45 36.7 C 88 16 113/69 97
[2019-12-10 06:44] LABS: Hematocrit (blood only) 26.9 % (37-47); Hemoglobin 9.4 g/dL (12.0-16.0); Mean Corpuscular Hemoglobin 32.9 pg (25-34); Mean Corpuscular Hgb Conc 34.9 g/dL (32-36); Mean Corpuscular Volume 94.1 fL (80-100); Mean Platelet Volume 10.2 fL (7.4-10.4); Platelet Count 196 K/uL (130-400); RDW Standard Deviation 44.2 fL (36.4-46.3); Red Blood Count 2.86 M/uL (4.2-5.4)
[2019-12-10] MEDS: FERROUS SULFATE 325 MG TAB PO SCH (08:16)
[2019-12-10] MEDS: PRENATAL VITAMIN 1 TAB PO SCH (08:16)
[2019-12-10] MEDS: IBUPROFEN 600 MG TAB PO PRN (08:16)
[2019-12-10] MEDS: DOCUSATE SODIUM 100 MG CAP PO SCH (08:16)
[2019-12-10] MEDS ORDERED: bisacodyL 5 MG TABEC PO SCH (20:00)
== END 2019-12-10 13:05 | disposition home or self-care (01) | DRG 768 ==
LOC: OPB 15:12 → 4S1 15:13 → 4S2 12-09 03:19